=== PATIENT | male | born 1975 | race Caucasian/White ===

== ENCOUNTER 2024-04-21 13:31 | Emergency (ER) | payer SELFPAY ==
[2024-04-21 13:38] VITALS: BP 140/91
[2024-04-21 13:55] VITALS: BMI 28.7
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
[2024-04-21] MEDS: LIDOCAINE 4% PATCH 1 PATCH TOPICAL (14:07)
[2024-04-21] MEDS: MOTRIN 600 MG PO (14:07)
== END 2024-04-21 14:24 | disposition home or self-care (01) ==
LOC: EMR 13:31
PROVIDERS: EMERGENCY PHYSICIAN Emergency Medicine; FAMILY PHYSICIAN Internal Medicine
DX: S20.212A Contusion of left front wall of thorax, initial encounter (principal); X58.XXXA Exposure to other specified factors, initial encounter
CPT/HCPCS: 99283; 71101